=== PATIENT | female | born 1945 | race African-American/Black ===

== ENCOUNTER 2025-01-22 08:05 | Emergency (ER) | payer OTHER ==
[2025-01-22 08:42] VITALS: BMI 26.6
[2025-01-22 09:52] LABS: ABSOLUTE IMMATURE GRANULOCYTES 0.34 x10^3/uL (0.0-0.031); BASOPHILS # 0.08 x10^3/uL (0.01-0.08); EOSINOPHIL % 0.6 % (0.7-5.8); EOSINOPHILS # 0.07 x10^3/uL (0.04-0.36); HEMATOCRIT 24.9 % (34.1-44.9); HEMOGLOBIN 7.4 g/dL (11.2-15.7); MCHC 29.7 g/dl (32.2-35.5); MEAN CELL VOLUME 92.9 fl (79.4-94.8); MEAN PLT VOLUME 9.5 fl (9.4-12.3); MONOCYTE % 10.6 % (4.7-12.5); PLATELET COUNT 912 x10^3/uL (182-369); RDW 25.5 % (12.4-16.6)
[2025-01-22 10:20] LABS: POTASSIUM 3.7 mmol/L (3.5-5.1)
[2025-01-22 10:22] LABS: ALBUMIN 1.4 g/dl (3.4-5.0); BLOOD UREA NITROGEN 19.2 mg/dL (7-18); CALCIUM 7.9 mg/dL (8.5-10.1); MAGNESIUM 2.1 mg/dL (1.8-2.4)
[2025-01-22 10:26] LABS: CREATININE 0.6 mg/dL (0.55-1.3); INR 1.15 (0.83-1.09); PROTHROMBIN TIME (PATIENT) 12.5 SEC (9.7-13.0)
[2025-01-22 10:27] LABS: BILIRUBIN,TOTAL 0.4 mg/dL (0.2-1); TOT PROT 5.4 g/dl (6.4-8.2)
[2025-01-22 10:28] LABS: ACTIVATED PTT 36.4 SECONDS (25.2-36.5)
[2025-01-22 10:31] LABS: N-TERMINAL BNP 553.8 pg/ml (5-450)
[2025-01-22 14:46] VITALS: RESP 18
[2025-01-22 18:46] VITALS: BP 154/76; PULSE 92; TEMP 99.2
== END 2025-01-22 18:40 ==
LOC: JER 08:05
DX: D64.9 Anemia, unspecified (principal); I11.0 Hypertensive heart disease with heart failure; I50.9 Heart failure, unspecified; C22.0 Liver cell carcinoma
CPT/HCPCS: 0241U-QW; 36415; 36430; 71045-TC-FY; 80053; 82962; 83605; 83735; 83880; 84484; 85025; 85610; 85730; 86850; 86900; 86901; 86922; 87040; 93005; 93010; 99285-25; P9058

== ENCOUNTER 2025-03-07 02:25 | Inpatient (IN) | payer OTHER ==
[2025-03-07 02:46] VITALS: BMI 48.4
[2025-03-07 03:19] LABS: HEMOGLOBIN 8.9 g/dL (11.2-15.7); MEAN PLT VOLUME 10.2 fl (9.4-12.3)
[2025-03-07 03:21] LABS: HEMATOCRIT 27.8 % (34.1-44.9); MEAN CELL VOLUME 89.4 fl (79.4-94.8); PLATELET COUNT 619 x10^3/uL (182-369)
[2025-03-07] MEDS ORDERED: NOREPINEPHRINE BITARTRATE 4 MG/4 ML ML IV ONE (03:22)
[2025-03-07 03:27] LABS: INR 1.98 (0.83-1.09); PROTHROMBIN TIME (PATIENT) 21.6 SEC (9.7-13.0)
[2025-03-07 03:30] LABS: ACTIVATED PTT 38.5 SECONDS (25.2-36.5)
[2025-03-07] MEDS: NOREPINEPHRINE BITARTRATE 4,000 MCG in DEXTROSE 5%-WATER - 496 ML IV SCH (03:46)
[2025-03-07 03:49] LABS: POTASSIUM 5.2 mmol/L (3.5-5.1)
[2025-03-07 03:55] LABS: CREATININE 1.1 mg/dL (0.55-1.3)
[2025-03-07 03:57] LABS: TOT PROT 4.6 g/dl (6.4-8.2)
[2025-03-07 03:59] LABS: LACTIC ACID 13.9 mmol/L (0.4-2.0)
[2025-03-07] MEDS ORDERED: DEXTROSE 50%-WATER 25 GM/50 ML DISP.SYRIN ONE (04:22)
[2025-03-07] MEDS: DEXTROSE 50%-WATER 25 GM/50 ML DISP.SYRIN IVPUSH ONE (04:26)
[2025-03-07] MEDS: FUROSEMIDE 40 MG/4 ML INJECTABLE VIAL IVPUSH ONE (04:40)
[2025-03-07] MEDS ORDERED: MORPHINE SULFATE 2 MG/ML SYRINGE ONE (04:54)
[2025-03-07] MEDS: morphine CARPU-JECT 2 MG/1 ML DISP.SYRIN IVPUSH ONE ×2 (05:03→06:27)
[2025-03-07 05:21] VITALS: TEMP 97.6
[2025-03-07] MEDS ORDERED: MORPHINE SULFATE/0.9% NACL/PF 100 MG/100 ML BAG IVPB SCH (05:45)
[2025-03-07] MEDS ORDERED: LORazepam 2 MG/ML SDV VIAL ONE (06:02)
[2025-03-07] MEDS: LORazepam 2 MG/ML SDV VIAL IVPUSH ONE (06:15)
[2025-03-07] MEDS ORDERED: LORazepam 2 MG/ML SDV VIAL IVPUSH PRN ×2 (07:48→09:41)
[2025-03-07] MEDS ORDERED: MORPHINE SULFATE/0.9% NACL/PF 100 MG/100 ML BAG ONE (08:04)
[2025-03-07] MEDS: MORPHINE SULFATE/0.9% NACL/PF 100 MG/100 ML BAG IVPB SCH ×2 (08:28→09:36)
[2025-03-07 08:30] VITALS: BP 60/37
[2025-03-07] MEDS ORDERED: ACETAMINOPHEN 650 MG SUPP.RECT RC PRN (09:19)
[2025-03-07 11:40] VITALS: PULSE 110; RESP 20
== END 2025-03-07 15:10 | disposition expired | DRG 189 ==
LOC: JER 02:25 → JERBED 05:36
PROVIDERS: ADMIT Internal Medicine; ATTEND Physician Assistant
DX: J96.01 Acute respiratory failure with hypoxia (principal); G93.41 Metabolic encephalopathy; I21.4 Non-ST elevation (NSTEMI) myocardial infarction; C78.5 Secondary malignant neoplasm of large intestine and rectum; C22.0 Liver cell carcinoma; E87.20 Acidosis, unspecified; I50.9 Heart failure, unspecified; F03.90 Unspecified dementia, unspecified severity, without behavioral disturbance, psychotic disturbance, mood disturbance, and anxiety; I11.0 Hypertensive heart disease with heart failure; E11.9 Type 2 diabetes mellitus without complications; D64.9 Anemia, unspecified; E78.5 Hyperlipidemia, unspecified; E83.51 Hypocalcemia; E87.5 Hyperkalemia
CPT/HCPCS: 0241U-QW; 36415; 71045-TC-FY; 80053; 82140; 83605; 84484; 85025; 85610; 85730; 87040; 87077; 87186; 99291